=== PATIENT | female | born 1990 | race American Indian/Alaskan Native ===

== ENCOUNTER 2016-11-28 14:39 | Emergency (ER) | payer OTHER ==
[~2016-11-28] VITALS: Ht 165.1 cm; Wt 54.4 kg
[2016-11-28 15:27] VITALS: BP 114/75
[2016-11-28 15:30] VITALS: BP 122/61
--- NOTE | 2016-11-28 15:44 | Emergency Room Report ---
History of Present Illness General Chief Complaint: Abdominal Pain Source: Patient Present Illness HPI This patient states that for the past few days she has had abnormal vaginal discharge. She states it is thicker than usual for her. She's also had some lower abdominal pain. She denies vomiting. She states she has been a little bit nauseated. She states that she's also had some mild dysuria. She denies fever or chills. She has not other complaints. Allergies: Coded Allergies: No Known Allergies (Unverified , 11/28/16) Patient History Past Medical History: none Past Surgical History: none Social History: Denies: alcohol use, drug use, smoking Last Menstrual Period: 11/24/2016 Reviewed Nursing Documentation: PMH: Agreed, PSxH: Agreed Nursing Documentation-PMH Past Medical History: No Stated History Review of Systems Eye: Denies: acuity changes, blurred vision, discharge, double vision, eye pain , no symptoms, nose congestion, nose pain, other, see HPI, tearing All Other Systems: negative except mentioned in HPI Physical Exam Vital Signs Date Time Temp Pulse Resp B/P Pulse Ox O2 Delivery O2 Flow Rate FiO2 11/28/16 15:02 98.4 82 14 114/75 99 Room Air Sp02 EP Interpretation: reviewed, normal General Appearance: no apparent distress, alert, GCS 15, non-toxic Head: normocephalic, atraumatic Eyes: bilateral eye PERRL, bilateral eye normal inspection ENT: hearing grossly normal, normal pharynx, no angioedema, normal voice Neck: full range of motion, supple/symm/no masses Respiratory: no respiratory distress, no retraction, no accessory muscle use, speaking full sentences Cardiovascular #1: no edema Cardiovascular #2: 2+ carotid (R), 2+ carotid (L), 2+ radial (R), 2+ radial (L) , 2+ dorsalis pedis (R), 2+ dorsalis pedis (L) Gastrointestinal: normal bowel sounds, soft, non-distended, no guarding, no rebound, tenderness - mild ttp diffusely Rectal: deferred Musculoskeletal: back normal, gait/station normal, normal range of motion, non- tender Neurologic: alert, oriented x3, responsive, motor strength/tone normal, sensory intact, speech normal Psychiatric: judgement/insight normal, memory normal, mood/affect normal, no suicidal/homicidal ideation Skin: normal color, no rash, warm/dry, well hydrated Medical Decision Making Diagnostic Impression: Primary Impression: Possible exposure to STD ER Course This patient presents with abnormal vaginal discharge unprotected intercourse. She also had some urinary complaints, however there was no evidence of urinary tract infection. After discussion with the patient, she agreed to undergo empiric treatment for STDs. She is nontoxic overall with normal vital signs and is afebrile. She is a benign abdominal exam. I will also go ahead and start the patient a course of Flagyl 2 also treated for Trichomonas and/or bacterial vaginosis. At this time, I did not identify an emergency medical condition. The patient is given return precautions and followup instructions. Labs Test 11/28/16 15:10 Urine Color Pale yellow Urine Appearance Clear Urine pH 7 (4.5-8.0) Urine Specific [place] 1.010 (1.005-1.035) Urine Protein Negative (NEGATIVE) Urine Glucose (UA) Negative (NEGATIVE) Urine Ketones Negative (NEGATIVE) Urine Occult Blood Negative (NEGATIVE) Urine Nitrite Negative (NEGATIVE) Urine Bilirubin Negative (NEGATIVE) Urine Urobilinogen Normal MG/DL (0.0-1.0) Urine Leukocyte Esterase 1+ (NEGATIVE) Urine RBC 0-2 /HPF (0 - 2) Urine WBC 2-4 /HPF (0 - 2) Urine Squamous Epithelial Cells Occasional /LPF Urine Bacteria Many /HPF (NONE) Urine HCG, Qualitative Negative Last Vital Signs Date Time Temp Pulse Resp B/P Pulse Ox O2 Delivery O2 Flow Rate FiO2 11/28/16 15:30 98.0 86 17 122/61 99 Room Air Status: improved Disposition: HOME, SELF-CARE Condition: Stable Scripts Metronidazole* (FLAGYL*) 500 Mg Tablet 500 MG ORAL BID, #14 TAB Prov: GABE LIGHT D.O. 11/28/16 Patient Instructions: Sexually Transmitted Disease, [id number] GABE LIGHT D.O. Nov 28, 2016 15:44
[2016-11-28] MEDS ORDERED: Lidocaine 1% MPF 10mg/ml 5ml ONE (15:45)
[2016-11-28] MEDS ORDERED: Azithromycin 250mg tab ORAL ONE (15:45)
[2016-11-28 16:22] LABS: APPEARANCE,URINE CLEAR; KETONES,URINE NEGATIVE (NEGATIVE); LEUKOCYTE ESTERASE ,URINE 1+ (NEGATIVE); NITRITE,URINE NEGATIVE (NEGATIVE); PH,URINE 7 (4.5-8.0); PROTEIN,URINE NEGATIVE (NEGATIVE); UROBILINOGEN,URINE NORMAL MG/DL (0.0-1.0)
[2016-11-28 16:38] LABS: BACTERIA,URINE MANY /HPF; RBC,URINE 0-2 /HPF (0 - 2); SQUAMOUS EPITHELIAL CELL,UR OCCASIONAL /LPF (NONE/OCC)
[2016-11-28] MEDS ORDERED: METRONIDAZOLE500 MG ORAL (17:23)
[2016-11-28 17:44] VITALS: BP 118/60
== END 2016-11-28 17:44 | disposition home or self-care (01) ==
LOC: EMR 16:11
DX: N89.8 Other specified noninflammatory disorders of vagina (principal); R10.9 Unspecified abdominal pain; R30.0 Dysuria
CPT/HCPCS: 81003; 81025; 87086; 87181; 96372; 99283; J0696; Q0144